=== PATIENT | female | born 1965 | race Caucasian/White ===

== ENCOUNTER 2020-06-27 08:12 | Day surgery (SDC) | payer OTHER ==
--- NOTE | 2020-06-27 08:18 | RAD REPORT ---
EXAM DESCRIPTION: Ilda Melendez (2 Views)06/27/2020 8:06 am CLINICAL HISTORY: Preop for breast surgery COMPARISON: None FINDINGS: The lungs appear clear of acute infiltrate. The heart is normal size IMPRESSION: No acute abnormalities displayed
--- OUTSIDE RECORDS SUMMARY | 2020-06-27 08:19 | XMS REPORT | Continuity of Care Document ---
:1965 Author Organization [facility] t Address [address] [place] [address] Care Team Providers Name Role Phone PCP Primary Care Physician Unavailable Advance Directives Directive Decision Effective Date Termination Date Comments Sour ce Yes N/A [facility] - [place] Problems Condition Condition Condition Status Onset Resolution Last Treating Co mments Source Name Details Category Date Date Treatment Clinician Date Problem Condition [facility] Allergies, Adverse Reactions, Alerts This patient has no known allergies or adverse reactions. Social History Social Habit Start Date Stop Date Quantity Comments Source Sex Assigned At [birth year] [facility] 00:00:00 Radha Smoking Status Start Date Stop Date Source Unknown if ever smoked [facility] Medications This patient has no known medications. Procedures Procedure Date / Time Performed Performing Clinician [facility] 2019-07-03 00:00:00 [facility] - [facility] visit Radha Encounters Start End Encounter Admission Attending Care Care Encounter Source Date/Time Date/Time Type Type Clinicians Facility Department ID 2019-07-03 2019-08-02 [id number] [facility] 09:59:00 23:59:[address] - [place] Elizab e Results Test Description Test Time Test Comments Results Result [facility] e Comments MRI Upper Ext J[facility] WO Con [facility] Pt Name: CARLITOS MOREJON [address] Phys: [place] [address] : 1965 Age: 54 SEX:F [phone] Exam Date: 11/08/19 Status: REG CLI Acct: [id number] Loc: MRI Pt Unit #: [id number] Report #: [id number] CC: TETE PERALTA MD MRI REPORT Order # Category/Exam [id number] MRI/MRI Upper Ext Jt Rt WO Con ([id number]): . Results MRI RIGHT SHOULDER PERFORMED WITHOUT CONTRAST ENHANCEMENT: Date: 11/08/2019 HISTORY: Right shoulder pain. 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 There is moderate motion artifact which degrades detail. The supra, as well as infraspinatus tendons appear intact. There is some edema change near the musculotendinous junction of the supraspinatus tendon which would indicate a mild strain. Subscapularis muscle and tendon are intact and biceps tendon is normal in position in the bicipital groove. Motion artifact limits assessment of the labrum, but no labral injury is noted. There is artifact present in the axillary region. I am not certain what this is related to, perhaps clips related to previous surgery. IMPRESSION: 1. No evidence of rotator cuff tear. There are some edema changes near the musculotendinous junction of the supraspinatus muscle suggesting some mild muscle strain. 2. Arthritic changes of the AC joint. POS: [facility] Reported By: Shar Osullivan MD Electronically Signed Date/Time: 11/08/19 1234 Technologist: NPR Dictated Date/Time: 11/08/19 1024 Transcribed Date/Time: 11/08/19 1117 MAMMO Bilat [facility] Pt Name: CARLITOS MOREJON Phys: OUT OF TOWN PHYSICIAN , : 1965 Age: 54 SEX:F Exam Date: 03/16/19 Status: REG CLI Acct: [id number] Loc: BICMAMMO Pt Unit #: [id number] Report #: [id number] CC: OUT OF TOWN PHYSICIAN MAMMOGRAPHY REPORT Order # Category/Exam [id number] MMO/MAMMO Bilat Diag [facility] ([id number]): . Results Bilateral MAMMO Bilat Diag [facility]. CLINICAL HISTORY: Patient is 54 years old and is seen for diagnostic exam. The patient has the following family history of breast cancer: maternal aunt and maternal grandmother. The patient has no personal history of cancer. The patient has a history of bilateral Implants - benign. VIEWS: The views performed were: bilateral craniocaudal; bilateral mediolateral oblique; bilateral mediolateral; and bilateral Implant displaced with tomosynthesis. MAMMOGRAM FINDINGS: There are scattered fibroglandular densities. Finding 1: There is an intramammary lymph node seen in the upper-outer region of the left breast. Finding 2: Normal implants are present. Finding 3: There are benign appearing calcifications seen in the left breast. There are no suspicious masses, suspicious calcifications, or new areas of architectural distortion. IMPRESSION: THERE IS NO MAMMOGRAPHIC EVIDENCE OF MALIGNANCY. A ROUTINE FOLLOW-UP MAMMOGRAM IN 1 YEAR IS RECOMMENDED. THE RESULTS OF THIS EXAM WERE SENT TO THE PATIENT. ACR BI-RADS Category 2 - Benign finding MAMMOGRAPHY NOTE: 1. A negative mammogram report should not delay a biopsy if a dominant of clinically suspicious mass is present. 2. Approximately 10% to 15% of breast cancers are not detected by mammography. 3. Adenosis and dense breasts may obscure an underlying neoplasm. Reported By: Riaz Mondragon MD Electronically Signed Date/Time: 03/16/19 1542 Technologist: EMA Dictated Date/Time: 03/16/19 Transcribed Date/Time: 03/16/19 MAMMO Bilat [facility] Pt Name: CARLITOS MOREJON [address] [facility]. Phys: OUT OF TOWN PHYSICIAN [place] [address] : 1965 Age: 54 SEX:F [phone] Exam Date: 03/16/19 Status: DEP [facility] Acct: [id number] Loc: [facility] Pt Unit #: [id number] Report #: [id number] CC: OUT OF TOWN PHYSICIAN MAMMOGRAPHY REPORT Order # Category/Exam [id number] MMO/MAMMO Bilat Diag [facility] ([id number]): . Results 2 Bilateral MAMMO Bilat Diag [facility]. CLINICAL HISTORY: Patient is 54 years old and is seen for diagnostic exam. The patient has the following family history of breast cancer: maternal aunt and maternal grandmother. The patient has no personal history of cancer. The patient has a history of bilateral Implants - benign. VIEWS: The views performed were: bilateral craniocaudal; bilateral mediolateral oblique; bilateral mediolateral; and bilateral Implant displaced with tomosynthesis. MAMMOGRAM FINDINGS: There are scattered fibroglandular densities. Finding 1: There is an intramammary lymph node seen in the upper-outer region of the left breast. Finding 2: Normal implants are present. Finding 3: There are benign appearing calcifications seen in the left breast. There are no suspicious masses, suspicious calcifications, or new areas of architectural distortion. IMPRESSION: THERE IS NO MAMMOGRAPHIC EVIDENCE OF MALIGNANCY. A ROUTINE FOLLOW-UP MAMMOGRAM IN 1 YEAR IS RECOMMENDED. THE RESULTS OF THIS EXAM WERE SENT TO THE PATIENT. ACR BI-RADS Category 2 - Benign finding MAMMOGRAPHY NOTE: 1. A negative mammogram report should not delay a biopsy if a dominant of clinically suspicious mass is present. 2. Approximately 10% to 15% of breast cancers are not detected by mammography. 3. Adenosis and dense breasts may obscure an underlying neoplasm. Reported by: KAYLAN MONDRAGON MD Electonically Signed: [id number] Reported By: Riaz Mondragon MD Electronically Signed Date/Time: 03/16/19 1542 Technologist: [email or web address] Dictated Date/Time: 03/16/19 Transcribed Date/Time: 03/16/19
[2020-06-27 08:26] LABS: Urine Appearance CLEAR; Urine Bilirubin NEGATIVE (NEG); Urine Blood NEGATIVE (NEG); Urine Color YELLOW; Urine Glucose NEGATIVE (NEG); Urine Protein NEGATIVE (NEG); Urine Urobilinogen 0.2 mg/dL (0.2-1.0)
[2020-06-27 08:31] LABS: Urine Microscopic Reflex NO UMIC
[2020-06-27] MEDS ORDERED: SCOPOLAMINE HYDROBROMIDE PATCH TD ONE (09:08)
[2020-06-27] MEDS ORDERED: Ringers Lactate 1,000 ML IV ONE ×4 (09:08→13:53)
[2020-06-27] MEDS ORDERED: CEFAZOLIN/SWI 1gm 1 GM/10 ML SYR ONE (09:08)
[2020-06-27] MEDS ORDERED: propofoL 200 MG/20 ML VIAL IV ONE (09:20)
[2020-06-27] MEDS ORDERED: LIDOCAINE 2% MPF 5 ML VIAL ONE (09:21)
[2020-06-27] MEDS ORDERED: GLYCOPYRROLATE 0.2 MG/ML SYR ONE (09:21)
[2020-06-27] MEDS ORDERED: MIDAZOLAM HCL 2 MG/2 ML INJ ONE (09:21)
[2020-06-27] MEDS ORDERED: ROCURONIUM 50 MG/5 ML VIAL IV ONE ×3 (09:22→14:05)
[2020-06-27] MEDS ORDERED: FENTANYL CITR 250 MCG/5 ML ONE ×2 (09:22→14:40)
[2020-06-27] MEDS ORDERED: ONDANSETRON 4 MG/2 ML VIAL ONE ×2 (09:24→17:09)
[2020-06-27] MEDS ORDERED: dexAMETHasone 10 MG/ML VIAL ONE (09:35)
[2020-06-27] MEDS ORDERED: KETOROLAC 30 MG/ML INJ ONE (09:35)
[2020-06-27] MEDS ORDERED: FENTANYL CITR 100 MCG/2 ML ONE ×2 (10:40→11:25)
[2020-06-27] MEDS ORDERED: GENTAMICIN SULF 80 MG/2ML INJ ONE (13:23)
[2020-06-27] MEDS ORDERED: Mastisol Adhesive Liq ONE ×2 (13:23→13:51)
[2020-06-27] MEDS ORDERED: CEFAZOLIN SODIUM 1 GM/VIAL ONE (13:23)
[2020-06-27] MEDS ORDERED: BACITRACIN 50000 UNIT VIAL ONE (13:23)
[2020-06-27] MEDS ORDERED: NS 0.9% VIAL 40 ML ONE (13:23)
[2020-06-27] MEDS ORDERED: LIDOCAINE 1% W/EPI 1:100,000 MDV 20 ML VIAL ONE (13:23)
[2020-06-27] MEDS ORDERED: PROMETHAZINE INJ 25 MG/ML AMP IV PRN (14:02)
[2020-06-27] MEDS: D5LR 1,000 ML IV SCH ×2 (15:00→18:11)
[2020-06-27] MEDS ORDERED: VECURONIUM 10 MG/VIAL IV ONE (15:16)
[2020-06-27] MEDS: HYDROMORPHONE HCL 1 MG/ML INJ ONE ×6 (16:49→17:38)
[2020-06-27] MEDS: MEPERIDINE HCL 50 MG/ML IM PRN ×2 (18:11→23:50)
[2020-06-27] MEDS: CEFAZOLIN/SWI 1gm 1 GM/10 ML SYR IVP SCH ×2 (18:26→23:50)
[2020-06-27 20:06] VITALS: BMI 22.8
[2020-06-28] MEDS: D5LR 1,000 ML IV SCH ×2 (01:00→03:37)
--- NOTE | 2020-06-28 02:02 | OP ---
Surgeon: Quique Huerta MD Preoperative Diagnoses: Abdominal lipodystrophy and breast descent. Postoperative Diagnoses: Abdominal lipodystrophy and breast descent. Procedure Performed: Breast lift and abdominoplasty with mesh reinforcement. Anesthesia: General. Procedure In Detail: After satisfactory induction of general anesthesia, the chest was prepped with DuraPrep, dry sterile drapes placed in the usual manner. A template was used to outline the right an d left areolas. Then, a transverse curvilinear incision was made. Intervening skin was de-epithelia lized with dermabrader and EpiCut. Both sides were done. Simultaneously, then the incision made on the right side. Flap thinned to 1.2 cm, elevated towards the clavicle, sternum and anterior axillary line, and then the inferior incision was made in the deep tissue formed into a cone using 2-0 PDS gutierrez ture and then straps were elevated at 12 o'clock, 1:30, and 3 o'clock position. Mirror image was don e on the opposite side. We then returned the right side and then the straps were woven in and out th e pectoralis muscle back to base of cone and tied to themselves with 2-0 PDS suture. A [address] ap was sewn over the sternum at 3 o'clock position with 2-0 Mersilene. Mirror image done on the left side. The wounds were temporary moy shut. The patient sat up, dog ears marked out laterally, a nd then returned to supine, moy removed, irrigated with antibiotic solution. A 10 BRANDIE brought out the axilla, sewn in place with 2-0 silk. Wound closed with 3-0 Vicryl subcu, 3-0 PDS running subcut icular. Both sides were done. Then, the patient was sat up. Site for new nipple-areolar complex wa s marked out. Tissue was cored out with 38 template and then closed with 4-0 PDS subcuticular follow ed by 4-0 PDS running subcuticular. Then, attention was turned to the abdomen. All new equipment, n ew light handles, new outfits, new gowns and gloves and aprons. Then, the old incision was incised a nd then the technique was used. Scalpel was used to dissect down to subcu tissue, elevati ng off the previous tummy tuck flap encountered with 3-0 Mersilene sutures in the midline from the umbilicus down and cutting above. We had proceeded up to the sternum and laterally to the f lank, and then #1 running Prolene was done from the subcostal margin abdomen on both sides and then the midline was plicated 0.2 cm inside with interrupted 0 Prolene. This was done, a piece of mesh was sewn overlying anterior explant and some superior umbilical . Then, the 10 BRANDIE brought out of the axilla and laterally sewn in place with 2-0 silk. Wound closed with 3-0 Vicryl qu ilting sutures, 3-0 Vicryl subcu, and then 3 0 PDS running subcuticular tied in the vertical meridian of the abdomen. The umbilical floor was then tacked out towards the incision inferior from the 3 to 6 o'clock, 9 o'clock position. The tack suture was 3-0 Vicryl and then 4-0 PDS was used to close it . Dressings consisted of tincture of benzoin, Steri-Strips, 5 x 5s, fluffs, and Damion wraps in the nithya ast and a tincture of benzoin, Steri-Strips, 4 x 4s, tape on the abdomen. The patient tolerated the procedure well. Estimated blood loss 500 cc. Amount of tissue removed was 84 g from the right and 8 2 g from the left. LUX/ANNE MARIE Voice ID: [id number] Report ID: [id number]
[2020-06-28] MEDS: MEPERIDINE HCL 50 MG/ML IM PRN ×2 (06:09→10:58)
[2020-06-28] MEDS: CEFAZOLIN/SWI 1gm 1 GM/10 ML SYR IVP SCH (06:10)
[2020-06-28 07:36] VITALS: O2SAT 94
--- NOTE | 2020-06-28 12:27 | EKG ---
Test Date: 2020-06-27 Test Time: 08:06:33 Contracting Support Specialist: SHELLIE MEASUREMENT RESULTS: Intervals: Rate: 68 MT: 178 QRSD: 72 QT: 418 QTc: 444 Lindsey: P: 60 MT: 178 QRS: 46 T: 48 INTERPRETIVE STATEMENTS: Normal sinus rhythm Normal ECG No previous ECG available for comparison Electronically Signed On 06-28-20 12:24:45 CDT by Rodríguez Sexton
[2020-06-28 14:39] VITALS: BP 106/53; TEMP 98.5
--- NOTE | 2020-06-30 14:49 | DS ---
Date of Discharge: 06/28/2020 The patient's wounds examined, healing well. I . BRANDIE drains are draining. Her nipples are pink. Sensation intact on the right she says, she cannot feel left . She has not even vo ided yet. Inspiratory spirometer about 12 cc. When she , she will be discharged home to [facility] following Tuesday at 3 o'clock. She already had prescription for pain muscle relaxant. LUX/ANNE MARIE Voice ID: [id number] Report ID: [id number]
== END 2020-06-28 12:17 | disposition home health service (06) ==
LOC: OR 08:12 → 2ND 13:25 → OR 06-28 12:17
PROVIDERS: ATTEND Specialist
PROC: 0HSV0ZZ Reposition Bilateral Breast, Open Approach (ICD-10-PCS; principal; 2020-06-27 09:00)
PROC: 0J080ZZ Alteration of Abdomen Subcutaneous Tissue and Fascia, Open Approach (ICD-10-PCS; 2020-06-27 09:00)
DX: N64.81 Ptosis of breast (principal); E88.1 Lipodystrophy, not elsewhere classified; Z20.828 Contact with and (suspected) exposure to other viral communicable diseases
CPT/HCPCS: 93005; 88305; 81003; 71046; 94010; 19316; 15830; 15847; J2704; J1580; J2250; J3010 ×4; J1100; J2175 ×3; J1170 ×3; J0690 ×2; J7121 ×2; J7120 ×4; J2405 ×2